=== PATIENT | female | born 1950 | race Caucasian/White ===

== ENCOUNTER 2023-09-29 21:13 | Emergency (ER) | payer MEDICARE ==
[~2023-09-29] VITALS: Ht 152.4 cm; Wt 47.4 kg
[2023-09-29 21:14] VITALS: O2SAT 99
[2023-09-29 21:57] LABS: BASO # 0.1 10^3/uL (0.0-0.2); BASO % 1.4 % (0.0-1.0); EOS # 0.1 10^3/uL (0.0-0.5); EOS % 1.4 % (0.0-3.0); HEMATOCRIT 43.1 % (36.0-47.0); HEMOGLOBIN 14.4 g/dl (12.0-15.5); LYMPH # 1.7 10^3/uL (1.5-5.0); LYMPH % 28.8 % (24.0-44.0); MEAN CORPUSCULAR HEMOGLOBIN 31.1 pg (27.0-33.0); MEAN CORPUSCULAR HGB CONC 33.4 g/dl (32.0-36.5); MEAN CORPUSCULAR VOLUME 93.1 fl (80.0-96.0); MONO # 0.7 10^3/uL (0.0-0.8); MONO % 11.2 % (2.0-8.0); NEUTROPHILS # 3.4 10^3/uL (1.5-8.5); PLATELET COUNT, AUTOMATED 145 10^3/uL (150-450); RED BLOOD COUNT 4.63 10^6/uL (4.00-5.40); WHITE BLOOD COUNT 5.9 10^3/uL (4.0-10.0)
[2023-09-29 22:15] VITALS: TEMP 98
[2023-09-29 22:18] LABS: CK-MB VALUE MASS 1.8 NG/ML (<3.6)
[2023-09-29 22:20] LABS: ALBUMIN 4.1 G/DL (3.2-5.2); ALKALINE PHOSPHATASE 62 U/L (46-116); ALT/SGPT 47 U/L (7.0-40); AST/SGOT 30 U/L (<34); BILIRUBIN,DIRECT 0.1 MG/DL (<0.4); BILIRUBIN,TOTAL 0.6 MG/DL (0.3-1.2); BLOOD UREA NITROGEN 15 MG/DL (9-23); CALCIUM LEVEL 9.3 MG/DL (8.3-10.6); CARBON DIOXIDE LEVEL 30 MMOL/L (20-31); CHLORIDE LEVEL 108 MMOL/L (98-107); CREATININE FOR GFR 0.97 MG/DL (0.55-1.30); GLOMERULAR FILTRATION RATE > 60.0 (>39); GLUCOSE, FASTING 93 MG/DL (74-106); MAGNESIUM LEVEL 2.1 MG/DL (1.8-2.4); PHOSPHORUS LEVEL 3.3 MG/DL (2.4-5.1); SODIUM LEVEL 143 MMOL/L (136-145); TOTAL PROTEIN 6.6 G/DL (5.7-8.2)
[2023-09-29 22:21] LABS: THYROID STIMULATING HORMONE 5.594 uIU/ML (0.55-4.78)
[2023-09-29 22:22] LABS: FREE T4 1.14 NG/DL (0.89-1.76)
[2023-09-29 22:26] LABS: CPK CREATINE PHOSPHOKINASE 158 U/L (34-145); MB/CK RELATIVE INDEX 1.13 (< OR =4)
[2023-09-29 22:30] VITALS: BP 117/71
[2023-09-29] MEDS ORDERED: ISOVUE-370 76% 100ML VIAL As Ordered ONE (22:33)
[2023-09-29 22:55] LABS: CK-MB VALUE MASS 1.6 NG/ML (<3.6)
[2023-09-29 23:01] LABS: MB/CK RELATIVE INDEX 1.04 (< OR =4)
== END 2023-09-29 23:53 | disposition home or self-care (01) ==
LOC: M ED 21:13
DX: R00.2 Palpitations (principal); I45.10 Unspecified right bundle-branch block
CPT/HCPCS: 36415; 71045; 71275; 80048; 80076; 82550; 82553; 83735; 84100; 84439; 84443; 84484; 85025; 93005; 93041; 94760; 99284; Q9967